=== PATIENT | female | born 1940 | race Caucasian/White ===

== ENCOUNTER 2016-12-19 13:33 | Emergency (ER) | payer OTHER, MEDICARE ==
[~2016-12-19] VITALS: Ht 162.6 cm; Wt 85.2 kg
[~2016-12-19 13:33] MED LIST: ASPI325T PO; CELE40TA PO; COUM5TAB PO; CYCL-36 PO; DOCU100S PO; GLUC10TA3 PO; LISI40TA PO; RANI150 PO; STOO100C PO; TOPR25TA2 PO; WARF7.5 PO; ZOCO80TA PO
[2016-12-19 13:36] VITALS: BP 141/68; PULSE 84; RESP 15; TEMP 97.9; O2SAT 99
[2016-12-19] MEDS ORDERED: LEVO25TA4 PO (13:57)
[2016-12-19] MEDS ORDERED: CITA10TA4 PO (13:57)
[2016-12-19] MEDS ORDERED: ALPR0.25 PO (13:57)
[2016-12-19] MEDS ORDERED: WARF-23 PO (13:57)
[2016-12-19] MEDS ORDERED: SIMV80TA PO (13:57)
[2016-12-19] MEDS ORDERED: TRAD5TAB PO (13:57)
[2016-12-19] MEDS ORDERED: GLIP5TAB8 PO (13:57)
[2016-12-19] MEDS ORDERED: LANS30CA PO (13:57)
[2016-12-19] MEDS ORDERED: METF1000 PO (13:57)
[2016-12-19] MEDS ORDERED: FURO20TA PO (13:57)
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
[2016-12-19] MEDS ORDERED: CYCL1TAB29 PO (15:08)
== END 2016-12-19 15:22 | disposition home or self-care (01) ==
LOC: PHEFT 13:33
DX: M62.838 Other muscle spasm (principal); G44.209 Tension-type headache, unspecified, not intractable; E78.00 Pure hypercholesterolemia, unspecified; E11.9 Type 2 diabetes mellitus without complications; I10 Essential (primary) hypertension; Z95.1 Presence of aortocoronary bypass graft; V43.52XA Car driver injured in collision with other type car in traffic accident, initial encounter; Y93.9 Activity, unspecified; Y92.9 Unspecified place or not applicable; Y99.9 Unspecified external cause status
CPT/HCPCS: 70450

== ENCOUNTER 2017-05-17 09:40 | Emergency (ER) | payer MEDICARE, OTHER ==
[~2017-05-17] VITALS: Ht 165.1 cm; Wt 82.3 kg
[~2017-05-17 09:40] MED LIST changes: +ALPR0.25 PO; -ASPI325T PO; -CELE40TA PO; +CITA10TA4 PO; -COUM5TAB PO; -CYCL-36 PO; +CYCL10TA PO; -DOCU100S PO; +FURO20TA PO; +GLIP5TAB8 PO; -GLUC10TA3 PO; +LANS30CA PO; +LEVO25TA4 PO; -LISI40TA PO; +METF1000 PO; -RANI150 PO; +SIMV80TA PO; -STOO100C PO; -TOPR25TA2 PO; +TRAD5TAB PO; +WARF-23 PO; -WARF7.5 PO; -ZOCO80TA PO
[2017-05-17 09:54] VITALS: BP 117/65; PULSE 88; RESP 16; TEMP 98.3; O2SAT 98
[2017-05-17] MEDS ORDERED: GLIM1TAB PO (10:21)
--- NOTE | 2017-05-17 10:27 | PD ---
HPI Chief Complaint: Musculoskeletal Complaint Time Seen by Provider: 10:20 Travel History International Travel<30 days: No Contact w/Intl Traveler<30days: No Traveled to known affect area: No History of Present Illness HPI 76-year-old female presents to the emergency department for evaluation of right knee pain. Patient reports history of chronic knee pain for many months. She is Corticosteroid injections in the past. She states her last steroid injection was 2 months ago. Patient states that the pain is worsened over the weekend and this morning, she heard a pop in her right knee when she bent over. She states she has difficulty putting weight on her right knee due to pain. She denies any fevers or chills. Patient states the pain is in her right medial knee. Exacerbating factors are walking and movement. Alleviating factor is rest. Patient is requesting a steroid injection in her knee today. Severity is moderate. No radiation of pain. PFSH Past Medical History Depression: Yes Cancer: Yes (LEFT BREAST) Cardiac Catheterization: Yes Cardiovascular Problems: Yes (BYPASS LLE.) High Cholesterol: Yes Diabetes: Yes Patient Takes Glucophage: Yes Diminished Hearing: No Hypertension: Yes Tetanus Vaccination: > 5 Years Influenza Vaccination: Yes Menopausal: Yes Past Surgical History Cardiac Surgery: Yes (femoral stents x 2) Coronary Artery Bypass Graft: Yes (NOV 02 2009) Coronary Stent: Yes Gynecologic Surgery: Yes (l breast lumpectomy x 2) Hysterectomy: Yes Other Surgery: Yes (BYPASS IN LLE.) Social History Alcohol Use: Yes (occ) Tobacco Use: No Substance Use: No Allergies-Medications (Allergen,Severity, Reaction): Coded Allergies: diatrizoate meglumine (Unverified Allergy, Severe, hives, 05/17/17) gadobenic acid (Unverified Allergy, Severe, hives, 05/17/17) gadodiamide (Unverified Allergy, Severe, hives, 05/17/17) gadoteridol (Unverified Allergy, Severe, hives, 05/17/17) iodixanol (Unverified Allergy, Severe, hives, 05/17/17) iohexol (Unverified Allergy, Severe, hives, 05/17/17) Reported Meds & Prescriptions Reported Meds & Active Scripts Active Reported Glimepiride 1 Mg Tab 1 Mg PO DAILY Take with breakfast or first main meal Alprazolam 0.25 Mg Tab 0.25 Mg PO Q6H PRN Warfarin 5 Mg Tab 5.5 Mg PO DAILY Tradjenta (Linagliptin) 5 Mg Tab 5 Mg PO DAILY Simvastatin 80 Mg Tab 80 Mg PO DAILY Metformin (Metformin HCl) 1,000 Mg Tab 1,000 Mg PO BIDPC With meals Levothyroxine (Levothyroxine Sodium) 25 Mcg Tab 25 Mcg PO DAILY Lansoprazole 30 Mg Capdr 30 Mg PO DAILY Furosemide 20 Mg Tab 20 Mg PO DAILY Citalopram (Citalopram Hydrobromide) 10 Mg Tab 10 Mg PO DAILY Review of Systems Except as stated in HPI: all other systems reviewed are Neg Physical Exam Narrative GENERAL: Well-nourished, well-developed female patient, Afebrile. SKIN: Focused skin assessment warm/dry. No lacerations or abrasions. No erythema or warmth over right knee. HEAD: Normocephalic. Atraumatic. EYES: No scleral icterus. No injection or drainage. NECK: Supple, trachea midline. No JVD or lymphadenopathy. CARDIOVASCULAR: Regular rate and rhythm without murmurs, gallops, or rubs. Right pedal pulse is 2+. RESPIRATORY: Breath sounds equal bilaterally. No accessory muscle use. Lungs sounds are clear to auscultation. GASTROINTESTINAL: Abdomen soft, non-tender, nondistended. MUSCULOSKELETAL: No cyanosis, or edema. Patient has tenderness over right medial knee. No obvious deformity. No calf tenderness or swelling. She has limited flexion and extension due to pain. BACK: Nontender without obvious deformity. No CVA tenderness. Data Data Last Documented VS Vital Signs Date Time Temp Pulse Resp B/P (MAP) Pulse Ox O2 Delivery O2 Flow Rate FiO2 05/17/17 09:54 98.3 88 16 117/65 (82) 98 Orders Orders Knee, Complete (4vws) (05/17/17 ) Prednisone (Deltasone) (05/17/17 10:30) Acetaminophen (Tylenol) (05/17/17 10:30) MDM Medical Decision Making Medical Screen Exam Complete: Yes Emergency Medical Condition: Yes Medical Record Reviewed: Yes Interpretation(s) x-ray of the right knee -CONCLUSION: No acute abnormality observed. Differential Diagnosis Acute exacerbation of chronic knee pain versus muscle strain versus sprain versus fracture versus dislocation Narrative Course 76-year-old female presents to the emergency department for evaluation of right knee pain. No evidence of septic joint. X-ray of the right knee is ordered and pending. Patient is given Tylenol 650 mg by mouth, prednisone 40 mg by mouth. X-ray of the right knee shows no acute abnormality. Patient is given Augustus bandage. I offered a prescription for walker, but she states she has a wheelchair and a cane at home to use as needed. Patient is instructed to follow -up with her primary care physician. She verbalizes agreement and understanding. The patient was discharged in stable condition with instructions, including return instructions and follow up instructions. Diagnosis Primary Impression: Right knee sprain Qualified Codes: S83.91XA - Sprain of unspecified site of right knee, initial encounter Referrals: Primary Care Physician 2 days Patient Instructions: General Instructions, Knee Sprain (ED) Additional Instructions: Wear Augustus bandage as needed for support. Ice for 20 minutes 4-5 times daily. Follow-up with your primary care physician. Return to the emergency department for any acute worsening of symptoms. Med/Other Pt SpecificInfo: No Change to Meds Disposition: 01 DISCHARGE HOME Condition: Stable Debbi Johnson SELENE May 17, 2017 10:27
[2017-05-17] MEDS ORDERED: ACETAMINOPHEN 325 MG TAB PO ONE (10:30)
[2017-05-17] MEDS ORDERED: predniSONE 20 MG TAB PO ONE (10:30)
--- NOTE | 2017-05-17 11:05 | RADRPT ---
EXAM DATE/TIME: 05/17/2017 10:29 [facility] COMPARISON: No previous studies available for comparison. INDICATIONS : Right medial knee pain, heard pop in knee. MEDICAL HISTORY : None. SURGICAL HISTORY : None. ENCOUNTER: Initial ACUITY: 4 - 6 days PAIN SCORE: 10/10 LOCATION: Right medial knee FINDINGS: Four view examination of the right knee demonstrates no evidence of fracture or dislocation. Bony mi neralization is normal. The articular surfaces are intact. The suprapatellar soft tissues have a no rmal configuration. Calcified atherosclerotic plaque within the popliteal artery. CONCLUSION: No acute abnormality observed. Meng Goel Jr., MD on May 17, 2017 at 11:02 Board Certified Radiologist. This report was verified electronically.
== END 2017-05-17 11:30 | disposition home or self-care (01) ==
LOC: PHED 09:40
DX: S83.91XA Sprain of unspecified site of right knee, initial encounter (principal); E11.9 Type 2 diabetes mellitus without complications; I10 Essential (primary) hypertension; E78.00 Pure hypercholesterolemia, unspecified; Z79.84 Long term (current) use of oral hypoglycemic drugs; Z86.59 Personal history of other mental and behavioral disorders; Z85.3 Personal history of malignant neoplasm of breast; Z86.79 Personal history of other diseases of the circulatory system; X50.1XXA Overexertion from prolonged static or awkward postures, initial encounter
CPT/HCPCS: 73564; 99283; J7512

== ENCOUNTER 2017-09-07 15:59 | Emergency (ER) | payer MEDICARE ==
[~2017-09-07] VITALS: Ht 165.1 cm; Wt 85.0 kg
[~2017-09-07 15:59] MED LIST changes: -CYCL10TA PO; +GLIM1TAB PO; -GLIP5TAB8 PO
[2017-09-07 16:27] VITALS: BP 140/70; PULSE 122; RESP 18; O2SAT 96
--- NOTE | 2017-09-07 17:30 | PD ---
HPI Chief Complaint: Allergic/Adverse Reaction Time Seen by Provider: 16:57 Travel History International Travel<30 days: No Contact w/Intl Traveler<30days: No Traveled to known affect area: No History of Present Illness HPI 77-year-old female that presents to the ED for evaluation of allergic reaction. Patient apparently had contrast today which she is allergic to. Patient was premedicated which has worked for her in the past. Per patient she started having a reaction after having the CT with contrast to check for peripheral artery disease. Per patient she supposed to follow with Dr. Lenz at the end of this week for possible surgical options for her peripheral artery disease. She was medicated at the facility with epinephrine, Solu-Medrol and Benadryl with good results. Patient's currently asymptomatic. This happened about 2 hours ago. Apparently patient opted to come here instead of [facility] for unknown reasons. Patient currently wants to go home. She has no complaints. She feels great. Per patient her reaction was itchiness all over and sensation that she couldn't breathe. She currently has no symptoms and has no swelling at all. No pain. No urinary or bowel movement issues. No other medical issues. PFSH Past Medical History Depression: Yes Cancer: Yes (LEFT BREAST) Cardiac Catheterization: Yes Cardiovascular Problems: Yes (BYPASS LLE.) High Cholesterol: Yes Diabetes: Yes Diminished Hearing: No Hypertension: Yes Menopausal: Yes Past Surgical History Cardiac Surgery: Yes (femoral stents x 2) Coronary Artery Bypass Graft: Yes (NOV 02 2009) Coronary Stent: Yes Gynecologic Surgery: Yes (l breast lumpectomy x 2) Hysterectomy: Yes Other Surgery: Yes (BYPASS IN LLE.) Social History Alcohol Use: Yes (occ) Tobacco Use: No Substance Use: No Allergies-Medications (Allergen,Severity, Reaction): Coded Allergies: diatrizoate meglumine (Unverified Allergy, Severe, hives, 05/17/17) gadobenic acid (Unverified Allergy, Severe, hives, 05/17/17) gadodiamide (Unverified Allergy, Severe, hives, 05/17/17) gadoteridol (Unverified Allergy, Severe, hives, 05/17/17) iodixanol (Unverified Allergy, Severe, hives, 05/17/17) iohexol (Unverified Allergy, Severe, hives, 05/17/17) Reported Meds & Prescriptions Reported Meds & Active Scripts Active Reported Glimepiride 1 Mg Tab 1 Mg PO DAILY Take with breakfast or first main meal Alprazolam 0.25 Mg Tab 0.25 Mg PO Q6H PRN Warfarin 5 Mg Tab 5.5 Mg PO DAILY Tradjenta (Linagliptin) 5 Mg Tab 5 Mg PO DAILY Simvastatin 80 Mg Tab 80 Mg PO DAILY Metformin (Metformin HCl) 1,000 Mg Tab 1,000 Mg PO BIDPC With meals Levothyroxine (Levothyroxine Sodium) 25 Mcg Tab 25 Mcg PO DAILY Lansoprazole 30 Mg Capdr 30 Mg PO DAILY Furosemide 20 Mg Tab 20 Mg PO DAILY Citalopram (Citalopram Hydrobromide) 10 Mg Tab 10 Mg PO DAILY Review of Systems Except as stated in HPI: all other systems reviewed are Neg Physical Exam Narrative GENERAL: SKIN: Warm and dry. HEAD: Atraumatic. Normocephalic. EYES: Pupils equal and round. No scleral icterus. No injection or drainage. ENT: No nasal bleeding or discharge. Mucous membranes pink and moist. Tongue is midline. No uvula deviation. NECK: Trachea midline. No JVD. CARDIOVASCULAR: Regular rate and rhythm. RESPIRATORY: No accessory muscle use. Clear to auscultation. Breath sounds equal bilaterally. GASTROINTESTINAL: Abdomen soft, non-tender, nondistended. Hepatic and splenic margins not palpable. MUSCULOSKELETAL: Extremities without clubbing, cyanosis, or edema. No obvious deformities. Full range of motion of the upper and lower extremities bilaterally. 2+ pulses bilaterally. NEUROLOGICAL: Awake and alert. No obvious cranial nerve deficits. Motor grossly within normal limits. Five out of 5 muscle strength in the arms and legs. Normal speech. PSYCHIATRIC: Appropriate mood and affect; insight and judgment normal. Data Data Last Documented VS Vital Signs Date Time Temp Pulse Resp B/P (MAP) Pulse Ox O2 Delivery O2 Flow Rate FiO2 09/07/17 16:27 122 18 140/70 (93) 96 Orders Orders Ecg Monitoring (09/07/17 17:22) MDM Medical Decision Making Medical Screen Exam Complete: Yes Emergency Medical Condition: Yes Medical Record Reviewed: Yes Differential Diagnosis Unclear reaction versus drug reaction versus anaphylaxis versus normal exam Narrative Course 77-year-old female that presents to the ED for evaluation of allergic reaction. Patient was properly examine also to have signs and symptoms consistent with appears to be allergic reaction. Patient currently is symptomatic. Patient was given medications by facility where she was getting her CAT scan with good results. She was brought here for evaluation. Currently asymptomatic. She was put on a monitor. She will be observed for an additional 2 hours to make 4 hours total. The patient is symptomatic she will be released with a prescription for prednisone. Patient agrees and understands this plan. Patient is is reasons as to why we need to watch patient. Patient was told to follow with PCP. See ED worsening symptoms. Diagnosis Primary Impression: Allergic reaction to contrast media Qualified Codes: T50.8X5A - Adverse effect of diagnostic agents, initial encounter Patient Instructions: General Instructions Additional Instructions: Take medications as prescribed. Follow with PCP. See ED worsening symptoms. Med/Other Pt SpecificInfo: Prescription(s) given Disposition: 01 DISCHARGE HOME Condition: Stable Carter Edward Sep 07, 2017 17:30
[2017-09-07] MEDS ORDERED: PRED20 PO (17:31)
== END 2017-09-07 19:37 | disposition home or self-care (01) ==
LOC: NEDAMB 15:59
DX: L29.9 Pruritus, unspecified (principal); T50.8X5A Adverse effect of diagnostic agents, initial encounter
CPT/HCPCS: 99283

== ENCOUNTER → 2017-09-29 | Outpatient (CLI) | payer MEDICARE ==
[~2017-09-29] MED LIST changes: +LEVO.125 PO; +LISI10TA3 PO; +PRED20 PO; +VITA3000 PO; +WARF4TAB52 PO
[2017-09-29 14:10] LABS: AUTOMATED NEUTROPHIL # 8.5 TH/MM3 (1.8-7.7); BASOPHIL # 0.1 TH/MM3 (0-0.2); BASOPHIL % 0.6 % (0.0-2.0); EOSINOPHIL # 0.1 TH/MM3 (0-0.4); EOSINOPHIL % 0.9 % (0.0-4.0); HEMATOCRIT 33.4 % (35.0-46.0); HEMOGLOBIN 10.7 GM/DL (11.6-15.3); LYMPH % 16.3 % (9.0-44.0); LYMPHOCYTE # 1.9 TH/MM3 (1.0-4.8); MEAN CELL VOLUME 85.2 FL (80.0-100.0); MEAN CORPUSCULAR HEMOGLOBIN 27.3 PG (27.0-34.0); MEAN PLATELET VOLUME 7.5 FL (7.0-11.0); NEUT % 73.2 % (16.0-70.0); PLATELET COUNT 455 TH/MM3 (150-450); RED BLOOD COUNT 3.92 MIL/MM3 (4.00-5.30); RED CELL DISTRIBUTION WIDTH 18.3 % (11.6-17.2); WHITE BLOOD COUNT 11.6 TH/MM3 (4.0-11.0)
[2017-09-29 14:13] LABS: INTERNATIONAL NORMALIZED RATIO 1.1 RATIO; PROTHROMBIN TIME - PATIENT 10.8 SEC (9.8-11.6)
[2017-09-29 14:24] LABS: CALCIUM 8.9 MG/DL (8.5-10.1); CREATININE 1.35 MG/DL (0.50-1.00)
[2017-09-29 15:57] LABS: BASOPHILS 2 % (0-2); LYMPHOCYTES 9 % (9-44); MONOCYTES 7 % (0-8); NEUTROPHIL # MANUAL DIFF 9.3 TH/MM3 (1.8-7.7); POLYS (SEG NEUTROPHILS) 79 % (16-70); PROMYELOCYTES 1 % (0-0)
--- NOTE | 2017-09-30 19:50 | EKG ---
Date Performed: 09/29/2017 Time Performed: 13:21:17 PTAGE: 77 years EKG: Sinus rhythm WITH OCCASIONAL VENTRICULAR PREMATURE COMPLEXES BORDERLINE LEFT AXIS DEVIATION Compared to previous tracing, PVCs are now seen BORDERLINE ECG PREVIOUS TRACING : 01/04/2010 18.46 DOCTOR: Terry Mazariegos Interpretating Date/Time 09/30/2017 19:49:25
== END ==
LOC: CPRE 13:02
PROVIDERS: ATTEND Surgery
DX: Z01.810 Encounter for preprocedural cardiovascular examination (principal); Z01.812 Encounter for preprocedural laboratory examination; I78.9 Disease of capillaries, unspecified
CPT/HCPCS: 36415; 80048; 85007; 85027; 85610; 86850; 86900; 86901; 86920; 93005

== ENCOUNTER 2017-09-30 09:30 | Inpatient (IN) | payer MEDICARE ==
[~2017-09-30] VITALS: Ht 165.1 cm; Wt 82.3 kg
[~2017-09-30 09:30] MED LIST changes: -ALPR0.25 PO; -LEVO25TA4 PO; -PRED20 PO; -WARF4TAB52 PO
--- NOTE | 2017-09-30 10:29 | HHI.HP ---
History of Present Illness Chief Complaint: L groin pseudoaneurysm History of Present Illness 77 yo female with multiple L LE bypasses, last with EIA-PFA and [employer] WORKER-pop ( composite vein) in 2009. Has L groin pseudoaneurysm 6cm. Presents for elective reconstruction. Mild L LE swelling but no other symptoms Past/Family/Social History Past Medical History PAD DM HTN breast CA Past Surgical History B LE revascularizations Social History former smoker Family History CAD, cancers Home Medications Reported Medications Cholecalciferol (Vitamin D3) 3,000 Unit Tab, 3000 UNITS PO DAILY for Nutritional Supplement, #1 BOTTLE 0 Refills 09/29/17 Lisinopril (Lisinopril) 10 Mg Tab, 10 MG PO DAILY, #30 TAB 0 Refills 09/29/17 Levothyroxine (Synthroid) 125 Mcg Tab, 125 MCG PO DAILY for Thyroid, #30 TAB 0 Refills 09/29/17 Glimepiride (Glimepiride) 1 Mg Tab, 1 MG PO DAILY for Blood Sugar Management, # 30 TAB 0 Refills Take with breakfast or first main meal 05/17/17 Warfarin (Warfarin) 5 Mg Tab, 5.5 MG PO DAILY for Blood Clot Prevention, #30 TAB 0 Refills 12/19/16 Linagliptin (Tradjenta) 5 Mg Tab, 5 MG PO DAILY for Blood Sugar Management, #30 TAB 0 Refills 12/19/16 Simvastatin (Simvastatin) 80 Mg Tab, 80 MG PO DAILY for Cholesterol Management, #30 TAB 0 Refills 12/19/16 Metformin (Metformin) 1,000 Mg Tab, 1000 MG PO BIDPC for Blood Sugar Management , #60 TAB 0 Refills With meals 12/19/16 Lansoprazole (Lansoprazole) 30 Mg Capdr, 30 MG PO DAILY, CAP 0 Refills 12/19/16 Furosemide (Furosemide) 20 Mg Tab, 20 MG PO DAILY, #30 TAB 0 Refills 12/19/16 Citalopram (Citalopram) 10 Mg Tab, 10 MG PO DAILY for Control Depression, #30 TAB 0 Refills 12/19/16 Discontinued Reported Medications Warfarin (Warfarin) 1 Mg Tab, 3.5 MG PO DAILY for Blood Clot Prevention, #30 TAB 0 Refills 09/29/17 Alprazolam (Alprazolam) 0.25 Mg Tab, 0.25 MG PO Q6H Y for ANXIETY, TAB 0 Refills 12/19/16 Levothyroxine (Levothyroxine) 25 Mcg Tab, 25 MCG PO DAILY for Thyroid, #30 TAB 0 Refills 12/19/16 Discontinued Scripts Prednisone (Prednisone) 20 Mg Tab, 20 MG PO BID for 5 Days, #10 TAB 0 Refills Prov:Genesis Garcia MD 09/07/17 Coded Allergies: diatrizoate meglumine (Unverified Allergy, Severe, hives, 05/17/17) gadobenic acid (Unverified Allergy, Severe, hives, 05/17/17) gadodiamide (Unverified Allergy, Severe, hives, 05/17/17) gadoteridol (Unverified Allergy, Severe, hives, 05/17/17) iodixanol (Unverified Allergy, Severe, hives, 05/17/17) iohexol (Unverified Allergy, Severe, hives, 05/17/17) Review of Systems Constitutional: DENIES: Diaphoretic episodes, Fatigue, Fever, Weight gain, Weight loss, Chills, Dizziness, Change in appetite, Night Sweats Cardiovascular: DENIES: Chest pain, Palpitations, Syncope, Dyspnea on Exertion , PND, Lower Extremity Edema, Orthopnea, Claudication Physical Exam Neuro: alert, oriented, no distress HEENT: NC/AT Neck: no JVD Heart: reg rate Lungs: clear B Abdomen: nontender Vascular: palpable L groin pulse Extremities: slight yeast L groin but no erythema pending CTA reviewed Caprini VTE Risk Assessment Caprini VTE Risk Assessment: No/Low Risk (score <= 1) Caprini Risk Assessment Model Point Value = 1 Point Value = 2 Point Value = 3 Point Value = 5 Age 41-60 Minor surgery BMI > 25 kg/m2 Swollen legs Varicose veins or History of unexplained or recurrent spontaneous Oral contraceptives or hormone replacement Sepsis (< 1 month) Serious lung disease, including pneumonia (< 1 month) Abnormal pulmonary function Acute myocardial infarction Congestive heart failure (< 1 month) History of inflammatory bowel disease Medical patient at bed rest Age 61-74 Arthroscopic surgery Major open surgery (> 45 min) Laparoscopic surgery (> 45 min) Malignancy Confined to bed (> 72 hours) Immobilizing plaster cast Central venous access Age >= 75 History of VTE Family history of VTE Factor V Leiden Prothrombin [id number] Lupus anticoagulant Anticardiolipin antibodies Elevated serum homocysteine Heparin-induced thrombocytopenia Other congenital or acquired thrombophilia Stroke (< 1 month) Elective arthroplasty Hip, pelvis, or leg fracture Acute spinal cord injury (< 1 month) Prophylaxis Regimen Total Risk Factor Score Risk Level Prophylaxis Regimen 0-1 Low Early ambulation 2 Moderate Order ONE of the following: *Sequential Compression Device (SCD) *Heparin 5000 units SQ BID 3-4 Higher Order ONE of the following medications: *Heparin 5000 units SQ TID *Enoxaparin/Lovenox 40 mg SQ daily (WT < 150 kg, CrCl > 30 mL/min) *Enoxaparin/Lovenox 30 mg SQ daily (WT < 150 kg, CrCl > 10-29 mL/min) *Enoxaparin/Lovenox 30 mg SQ BID (WT < 150 kg, CrCl > 30 mL/min) AND/OR *Sequential Compression Device (SCD) 5 or more Highest Order ONE of the following medications: *Heparin 5000 units SQ TID (Preferred with Epidurals) *Enoxaparin/Lovenox 40 mg SQ daily (WT < 150 kg, CrCl > 30 mL/min) *Enoxaparin/Lovenox 30 mg SQ daily (WT < 150 kg, CrCl > 10-29 mL/min) *Enoxaparin/Lovenox 30 mg SQ BID (WT < 150 kg, CrCl > 30 mL/min) AND *Sequential Compression Device (SCD) Assessment and Plan Plan L groin reconstruction Discharge Planning 4-5 days Daughter "Marlene" [phone] Gold Lenz MD Sep 30, 2017 10:29
[2017-09-30] MEDS ORDERED: LACTATED RINGER'S 1000 ML IV PRN (10:30)
[2017-09-30] MEDS ORDERED: SODIUM CHLORID 0.9% 500 ML IV PRN (10:30)
[2017-09-30] MEDS ORDERED: METOPROLOL TARTRATE 25 MG TAB PO PRN (10:30)
[2017-09-30] MEDS ORDERED: INSULIN HUMAN REGULAR 1,000 UNITS/10 ML VIAL SQ PRN (10:30)
[2017-09-30] MEDS ORDERED: BUPIVACAINE HCL PF 0.5% 30 ML VIAL ONE (11:40)
[2017-09-30] MEDS ORDERED: HEPARIN SODIUM - IV 10,000 UNITS/10 ML VIAL ONE (11:40)
[2017-09-30] MEDS ORDERED: PROTAMINE SULFATE 50 MG/5 ML VIAL ONE (11:40)
[2017-09-30] MEDS ORDERED: ceFAZolin INJ 1,000 MG VIAL ONE (11:41)
[2017-09-30] MEDS ORDERED: THROMBIN (TOPICAL) 20,000 UNIT SPRAY KIT ONE ×2 (11:41→11:58)
[2017-09-30] MEDS ORDERED: HEPARIN-NS/PF INJ 500 ML ONE (11:41)
[2017-09-30] MEDS ORDERED: HEPARIN SODIUM - SQ 10,000 UNITS/ML VIAL ONE (13:26)
--- NOTE | 2017-09-30 13:57 | HHI.PR ---
cc: Gold Lenz MD Immediate Post Op Note Procedure Date: Sep 30, 2017 Pre Op Diagnosis: L femoral pseudoaneurysm Post Op Diagnosis: L femoral pseudoaneurysm Surgeon: Gold Lenz Utilization Manager(s): Makayla Carranza Procedure: L RP exploration Findings: densely inflamed pseudoaneurysm capsule Complications: none Specimen(s) removed: none Estimated blood loss: 100mL Anesthesia: General Drains: None Fluids: 1000mL IVF Patient to: PACU Patient Condition: Fair Date/Time of Procedure: SEE SURGICAL CARE RECORD Gold Lenz MD Sep 30, 2017 13:57
--- NOTE | 2017-09-30 14:08 | PD.VS.PN ---
Subjective Subjective/Hospital Course After performing a retroperiteonal incision, the pseudoaneurysm capsule was extensive and the EIA bypass was intensely inflamed. After tedious dissection, I decided that the safest thing for the patient would be to transfer to [facility] in [place] for additional surgical assistance. I spoke with the daughter Marlene on the phone and told her the plan. She agreed. Objective Vitals/I&O Date Time Temp Pulse Resp B/P (MAP) Pulse Ox O2 Delivery O2 Flow Rate FiO2 09/30/17 10:57 98.2 82 18 135/60 (85) 97 Assessment and Plan Plan L groin reconstruction Discharge Planning 4-5 days Daughter "Marlene" [phone] Gold Lenz MD Sep 30, 2017 14:08
[2017-09-30] MEDS ORDERED: *ONDANSETRON 4 MG VIAL PERIprocedural Use ONLY ONE (14:27)
[2017-09-30] MEDS ORDERED: *morphine SULFATE 4 MG/ML PERIprocedure ONLY ONE (14:27)
[2017-09-30] MEDS ORDERED: DO NOT ADM ANY ANTICOAGULANT DRUGS PRN (14:30)
[2017-09-30 15:40] VITALS: BP_SYST 154; BP_SYST 170; BP_DIAS 51; BP_DIAS 70; PULSE 79; RESP 16; TEMP 97.9; O2SAT 91
[2017-09-30] MEDS ORDERED: LORazepam 2 MG/ML VIAL IV PRN (15:45)
[2017-09-30] MEDS ORDERED: LORazepam 2 MG/ML VIAL IV ONE (15:45)
[2017-09-30] MEDS ORDERED: LACTATED RINGER'S 1000 ML INJ 1,000 ML IV SCH (15:52)
[2017-09-30] MEDS ORDERED: HYDROmorphone HCL 2 MG TAB PO PRN (16:00)
[2017-09-30] MEDS: hydrALAZINE HCL 20 MG/ML VIAL IV PUSH PRN ×2 (16:25→22:45)
--- NOTE | 2017-09-30 16:54 | MP ---
cc: Gold Lenz MD DATE OF OPERATION: 09/30/2017 PREOPERATIVE DIAGNOSIS: Left common femoral artery pseudoaneurysm. POSTOPERATIVE DIAGNOSIS: Left common femoral artery pseudoaneurysm. PROCEDURE PERFORMED: Retroperitoneal exploration. ATTENDING SURGEON: Gold Lenz MD INSTALLATION TECH SURGEON: Makayla Roman. ANESTHESIA: General. INDICATIONS: Ms. Ellis is a 77-year-old lady with a complex left groin pseudoaneurysm. She was taken to the operating room for surgical repair. Intraoperatively we found dense inflammation of the aneurysm prohibited safe repair and the procedure was aborted after retroperitoneal exploration. DESCRIPTION OF PROCEDURE: Informed consent was obtained from the patient. She was taken to the operating room and placed supine on the operating table. An appropriate timeout was taken to ensure the patient's identity, the operative site and the planned procedure. The administration of 2 grams of Ancef was initiated prior to skin incision and will be discontinued after a single preoperative dose. Everyone in the room agreed with timeout and we proceeded. She was prepped from her nipples to her toes. A retroperitoneal incision was made with a 10 blade, carried down through the subcutaneous tissue with electrocautery to the external oblique. The muscle and fascia was divided and dense inflammation was encountered around the arterial bypass graft of the external iliac artery. Multiple attempts were made to dissect around this. We were able to dissect it out proximally and able to place a clamp on this, but it was felt to be not safe to proceed and the wound was irrigated and made hemostatic and closed with #1 looped PDS, 2-0 Polysorb and the skin aydee. Sponge and needle counts were correct at the end of the case. I was present and scrubbed for the entire procedure. Gold Lenz MD RJLogan/RAYNE , 04:05 PM , 04:52 PM
[2017-09-30 19:00] VITALS: PULSE 105
[2017-09-30 19:15] VITALS: BP_SYST 139; BP_SYST 144; BP_DIAS 50; BP_DIAS 74; PULSE 100; RESP 18; TEMP 97.9; O2SAT 94
[2017-09-30] MEDS ORDERED: ZOLPIDEM TARTRATE 5 MG TAB PO PRN ×2 (22:45)
[2017-09-30 23:00] VITALS: PULSE 112
[2017-09-30] MEDS ORDERED: PHENYLEPH/NS 1000 MCG/10 ML SYR IV ONE (23:29)
[2017-09-30] MEDS ORDERED: SODIUM CHLORID 0.9% 500 ML INJ 500 ML IV ONE (23:29)
[2017-09-30] MEDS ORDERED: GLYCOPYRROLATE 1 MG/5 ML SYRINGE IV PUSH ONE (23:29)
[2017-09-30] MEDS ORDERED: ceFAZolin INJ 1,000 MG VIAL IV ONE (23:29)
[2017-09-30] MEDS ORDERED: LIDOCAINE HCL 1% PF 5 ML SYRINGE OTHER ONE (23:29)
[2017-09-30] MEDS ORDERED: ESMOLOL HCL 100 MG/10 ML VIAL IV ONE (23:29)
[2017-09-30] MEDS ORDERED: ONDANSETRON HCL 4 MG/2 ML VIAL IV ONE (23:29)
[2017-09-30] MEDS ORDERED: LACTATED RINGER'S 1000 ML INJ 1,000 ML IV ONE (23:29)
[2017-09-30] MEDS ORDERED: NEOSTIGMINE 5 MG/5 ML SYRINGE IV PUSH ONE (23:29)
[2017-09-30] MEDS ORDERED: ROCURONIUM INJ 50 MG/5 ML SYRINGE IV PUSH ONE (23:29)
[2017-09-30] MEDS ORDERED: LABETALOL HCL 100 MG/20 ML VIAL IV ONE (23:29)
[2017-09-30] MEDS ORDERED: PROPOFOL 200 MG/20 ML AMP IV ONE (23:29)
[2017-09-30] MEDS ORDERED: NORMOSOL R INJ 1,000 ML IV ONE (23:29)
[2017-09-30] MEDS ORDERED: SODIUM CHLORIDE 0.9% 20 ML VIAL IV ONE (23:29)
[2017-09-30] MEDS ORDERED: METOPROLOL TARTRATE 5 MG/5 ML VIAL IV PUSH ONE (23:29)
[2017-10-01] MEDS ORDERED: INFLUENZA VIRUS VACCINE (QUADRIVALENT) 0.5 ML SYR IM ONE (10:00)
[2017-10-01] MEDS ORDERED: PNEUMOCOCCAL POLYVALENT INJ 25 MCG/0.5 ML SYR IM ONE (10:00)
== END 2017-09-30 23:30 | disposition short-term general hospital (02) | DRG 264 ==
LOC: HSDI 09:30 → HCVI 16:18
PROVIDERS: ADMIT Surgery; ATTEND Surgery
PROC: 0WJH0ZZ Inspection of Retroperitoneum, Open Approach (ICD-10-PCS; principal; 2017-09-30 12:23)
DX: I72.4 Aneurysm of artery of lower extremity (principal); E11.9 Type 2 diabetes mellitus without complications; I10 Essential (primary) hypertension; Z53.8 Procedure and treatment not carried out for other reasons; Z85.3 Personal history of malignant neoplasm of breast; Z87.891 Personal history of nicotine dependence
CPT/HCPCS: 36415; 80048; 85007; 85027; 85610; 86850; 86900; 86901; 86920; 93005; J0360; J0690; J1644; J2060; J2270; J2370; J2405; J2710; J2720; J3010; J7040; J7120